=== PATIENT | female | born 1970 | race Two or more races ===

== ENCOUNTER 2021-07-21 11:20 | Outpatient (CLI) | payer OTHER | END 2021-07-21 11:32 | disposition home or self-care (01) | LOC: RAD 11:20 | DX: M41.9 Scoliosis, unspecified (principal) ==

== ENCOUNTER 2024-06-09 11:12 | Outpatient (CLI) | payer OTHER | END 2024-06-09 11:38 | disposition home or self-care (01) | LOC: RAD 11:12 | DX: M48.02 Spinal stenosis, cervical region (principal); M41.9 Scoliosis, unspecified ==